=== PATIENT | male | born 1960 | race Caucasian/White ===

== ENCOUNTER 2016-02-18 09:41 | Emergency (ER) | payer OTHER ==
[2016-02-18] MEDS ORDERED: FLUORESCEIN SODIUM 1 MG STRIP OP ONE (09:57)
[2016-02-18] MEDS ORDERED: PROPARACAINE 0.5% 15 ML OPHT DROP ONE (09:57)
[2016-02-18 10:03] VITALS: RESP 18; TEMP 98.4
--- NOTE | 2016-02-18 10:36 | EDPHY ---
H & P Stated Complaint: right eye injury from finger nail last night, pain, burning Time Seen by Provider: 02/18/16 10:09 - Personal History Current Tetanus/Diphtheria Vaccine: Yes Current Tetanus Diphtheria and Acellular Pertussis (TDAP): Yes - Medical/Surgical History Hx Asthma: No Hx Chronic Respiratory Disease: No Hx Diabetes: No Hx Cardiac Disease: No Hx Renal Disease: Yes Hx Cirrhosis: No Hx Alcoholism: No Hx HIV/AIDS: No Hx Splenectomy or Spleen Trauma: No Other PMH: pmh/psh: kidney bypass, HTN - Social History Smoking Status: Never smoked Constitutional: Initial Vital Signs Temperature (C) 36.9 C 02/18/16 10:00 Heart Rate 64 02/18/16 10:00 Respiratory Rate 18 02/18/16 10:00 Blood Pressure 192/101 H 02/18/16 10:00 O2 Sat (%) 94 02/18/16 10:00 O2 Delivery Mode Room Air Allergies/Adverse Reactions: No Known Allergies Allergy (Unverified 02/18/16 09:58) Home Medications: Medication Instructions Recorded Blood Pressure Medication 02/18/16 HYDROcodone/APAP 10325 [Russell 1 - 2 each PO Q4-6PRN PRN #20 tab 02/18/16 10/325] Ofloxacin 0.3% [Ocuflox 0.3%] 1 drops OP QID #1 opht.btl 02/18/16 Medical Decision Making ED Course/Re-evaluation: CHIEF COMPLAINT: Right eye pain HISTORY OF PRESENT ILLNESS: 55-year-old gentleman who just moved here 2 days ago from the [facility] and before that from [place]. This patient states that his accidentally scratched him in the right eye with her fingernail. Denies any visual difficulties except a little blurriness simply because the eye keeps tearing. His vision seems normal him with his glasses. He feels pain in the upper outer half of his eye. He denies any other injuries or any other problems this happened last night. REVIEW OF SYSTEMS: A 10 point review of systems was performed and is negative with the exception of the elements mentioned in the history of present illness. PHYSICAL EXAM: Visual Acuity: Noted from Nurse's notes. Pupils: PERRLA, EOMI, no nystagmus, no trauma, no injection. Lids: No edema or swelling Skin: No proptosis, no periorbital erythema or swelling, no vesicles Conjunctivae: mild injection laterally in the right eye injected, not icteric, no discharge Cornea: Exam with slit lamp and fluorescein shows a small denuded area of cornea but no evidence of corneal ulceration. There is uptake of fluorescein. The uptake is at a.m. eleven o'clock if his pupil is at the center of the clock face. Anterior chamber: Normal, no hyphema or hypopyon Posterior Chamber: No papilledema or hemorrhages. Past medical history: Hypertension Past surgical history: Noncontributory Family history: Noncontributory Social history: , employed as a conventional underwriter, does not abuse tobacco drugs or alcohol, just moved to town 2 days ago DIFFERENTIAL DIAGNOSIS: Includes but is not limited to corneal ulceration, corneal abrasion, conjunctivae well tear, conjunctivitis, foreign body MEDICAL DECISION MAKING: This patient has fluorescein uptake and evidence of corneal abrasion but no evidence of corneal ulceration. I have started this patient on Ocuflox and I have given him Russell for pain. In addition he will follow up with the ict support engineer in the next 1-2 days without fail. He just moved here 2 days ago and does not have any medical care established knows that he can return here at any time if he has any questions or problems. I gave him signs of infection. And told him to expect healing over the next 3-5 days. Departure - Departure Disposition: Home, Routine, Self-Care Clinical Impression: Corneal abrasion Condition: Good Instructions: Corneal Abrasion (ED) Referrals: OUT OF STATE,. [Primary Care Provider] - As per Instructions Carrillo Bermudez MD [Medical Doctor] - 1 day, if not improved Prescriptions: HYDROcodone/APAP 10/325 [Russell 10/325] 1 - 2 each PO Q4-6PRN PRN #20 tab PRN Reason: Pain, Moderate Ofloxacin 0.3% [Ocuflox 0.3%] 1 drops OP QID #1 opht.btl
[2016-02-18 11:02] VITALS: BP 197/122; PULSE 53; O2SAT 96
== END 2016-02-18 11:02 | disposition home or self-care (01) ==
DX: S05.01XA Injury of conjunctiva and corneal abrasion without foreign body, right eye, initial encounter (principal); I10 Essential (primary) hypertension; X58.XXXA Exposure to other specified factors, initial encounter